=== PATIENT | male | born 1945 | race Caucasian/White ===

== ENCOUNTER 2017-10-30 10:25 | Day surgery (SDC) | payer OTHER ==
[~2017-10-30 10:25] MED LIST: HYDROmorphone 2 MG/ML VIAL IV; MORPHINE SULFATE 4 MG/ML DISP.SYRIN. IV; ONDANSETRON PF 4 MG/2 ML VIAL. IV
[2017-10-30] MEDS ORDERED: ceFAZolin 2GM PREMIX 2 GM/50 ML BAG IV (11:00)
[2017-10-30] MEDS ORDERED: LIDOCAINE 2% PF Vial for OR 5 ML VIAL. (11:23)
[2017-10-30] MEDS ORDERED: DEXAMETHASONE SOD PHOS 20 MG/5 ML VIAL. (11:23)
[2017-10-30] MEDS ORDERED: fentaNYL PF VIAL 100 MCG/2 ML VIAL (11:23)
[2017-10-30] MEDS ORDERED: PROPOFOL 20 ML IV (11:23)
[2017-10-30] MEDS ORDERED: ONDANSETRON PF 4 MG/2 ML VIAL. (11:23)
[2017-10-30] MEDS: IV RINGERS,LACTATED 1000ML 1,000 ML IV (11:23)
[2017-10-30] MEDS: BACITRACIN 50,000 UNIT in IV NORMAL SALINE 500ML BAG 500 ML IRR (12:29)
[2017-10-30] MEDS: BUPIVACAINE-EPI 0.25%-1:200000 50 ML VIAL. (12:29)
[2017-10-30] MEDS ORDERED: ePHEDrine PF IN SALINE 50 MG/5 ML DISP.SYRIN IV (12:50)
[2017-10-30] MEDS: fentaNYL PF VIAL 100 MCG/2 ML VIAL IV ×3 (13:48→14:41)
[2017-10-30] MEDS: PROCHLORPERAZINE 10 MG/2 ML VIAL. IV (13:48)
[2017-10-30] MEDS: LIDOCAINE 1% PF 2 ML VIAL. ID (14:21)
[2017-10-30] MEDS ORDERED: HYDROcodone/APAP 5/325MG 1 TAB TABLET PO (14:45)
[2017-10-30] MEDS: HYDROcodone/APAP 5/325MG 1 TAB TABLET PO (14:57)
== END 2017-10-30 15:42 | disposition home or self-care (01) ==
LOC: SURG 10:25
DX: K40.90 Unilateral inguinal hernia, without obstruction or gangrene, not specified as recurrent (principal); J44.9 Chronic obstructive pulmonary disease, unspecified; Z98.890 Other specified postprocedural states; Z79.82 Long term (current) use of aspirin; Z79.899 Other long term (current) drug therapy; Z83.3 Family history of diabetes mellitus; Z82.49 Family history of ischemic heart disease and other diseases of the circulatory system; F17.210 Nicotine dependence, cigarettes, uncomplicated
CPT/HCPCS: 49505; C1781; J0690; J0780; J1100; J2405; J2704; J3010; J3490; J7040

== ENCOUNTER → 2018-01-26 | Outpatient (CLI) | payer OTHER ==
[2018-01-26] MEDS: IOHEXOL 300 MG/ML 100ML VIAL. IV (09:55)
[2018-01-26 10:12] LABS: ISTAT CREATININE 0.6 mg/dL (0.7-1.3)
== END | disposition home or self-care (01) ==
LOC: KCIC US 08:14
DX: J43.8 Other emphysema (principal); Z86.79 Personal history of other diseases of the circulatory system; Z87.891 Personal history of nicotine dependence
CPT/HCPCS: 71260; 76770; 82565; Q9967

== ENCOUNTER 2018-11-05 08:59 | Outpatient (CLI) | payer OTHER ==
[~2018-11-05] VITALS: Ht 167.6 cm; Wt 54.4 kg
[2018-11-05] VITALS (10 sets, daily range): BP systolic 110–142; BP diastolic 57–81
[~2018-11-05 08:59] MED LIST changes: +ASCO10002 PO; +ASPI-630 PO; +ATOR10TA60 PO; +BREO ELLIPTA 11 EACH IH; +BREO ELLIPTA 21 EACH IH; +HYDR-3164 PO; -HYDROmorphone 2 MG/ML VIAL IV; -MORPHINE SULFATE 4 MG/ML DISP.SYRIN. IV; +MULT1TAB52 PO; -ONDANSETRON PF 4 MG/2 ML VIAL. IV; +PROAIR RESPICL90 MCG IH; +VENTOLIN HFA18 GM INH
[2018-11-05 09:34] LABS: HEMATOCRIT 47.9 % (39.0-53.0); HEMOGLOBIN 16.1 g/dL (13.0-17.5); RED BLOOD COUNT 5.6 x10^6/uL (4.30-5.70); RED CELL DISTRIBUTION WIDTH 15.5 % (11.5-14.5); WHITE BLOOD COUNT 8.7 x10^3/uL (4.0-11.0)
[2018-11-05 09:46] LABS: CALCIUM 9.5 mg/dL (8.5-10.1); CREATININE 0.7 mg/dL (0.7-1.3); GFR 110.2; POTASSIUM 4.5 mmol/L (3.5-5.1)
[2018-11-05] MEDS ORDERED: MIDAZOLAM HCL/PF 5 MG/5 ML VIAL. ONE (13:42)
[2018-11-05] MEDS ORDERED: fentaNYL PF VIAL 100 MCG/2 ML VIAL ONE (13:42)
[2018-11-05] MEDS ORDERED: NITROGLYCERIN 200 MCG/2 ML SYRINGE FOR CATH/VASC LAB. ONE (14:03)
[2018-11-05] MEDS ORDERED: HEPARIN for IV BOLUS 10,000 UNIT/10 ML VIAL. ONE (14:03)
[2018-11-05] MEDS ORDERED: VERAPAMIL 5 MG/2 ML VIAL. ONE (14:03)
[2018-11-05] MEDS ORDERED: VERAPAMIL 5 MG/2 ML VIAL. IART ONE (14:45)
[2018-11-05] MEDS ORDERED: LIDOCAINE 1% Multi-Dose 20 ML VIAL. INJ ONE (14:45)
[2018-11-05] MEDS ORDERED: MIDAZOLAM HCL/PF 5 MG/5 ML VIAL. IV ONE (14:45)
[2018-11-05] MEDS ORDERED: NITROGLYCERIN 200 MCG/2 ML SYRINGE FOR CATH/VASC LAB. IART ONE (14:45)
[2018-11-05] MEDS ORDERED: IODIXANOL 320 MG/ML 100 ML VIAL. IART ONE (14:45)
[2018-11-05] MEDS ORDERED: HEPARIN for IV BOLUS 10,000 UNIT/10 ML VIAL. IART ONE (14:45)
[2018-11-05] MEDS ORDERED: fentaNYL PF VIAL 100 MCG/2 ML VIAL IV ONE (14:45)
--- NOTE | 2018-11-05 16:32 | CARD ---
MR#: [id number] Date of Study: 11/05/2018 Ordering Physician: TRAN LAMA, Referring Physician: TRAN LAMA, Tech: RT Heriberto (R) JANY APPROVED REPORT Technologist: RT Heriberto (R) JANY Nurse: Emili Colunga R.N. Procedure(s) performed: MOD SEDATION 50 MIN dap 84 Fluoro time: 4.2 min contrast: 145ml LHC, Coronary angiography. HISTORY The patient is a 73 year-old male with a history of : tobacco history() , hypertension, dyslipidemia. INDICATION The indication(s) include : unstable angina , dyspnea. [facility] Clinical Frailty Scale [facility] Clinical Frailty Scale: Moderately Frail Heart Failure Heart Failure: No If Yes, Newly Diagnosed: No PROCEDURE NARRATIVE INFORMED CONSENT: After explaining the risks and benefits of the procedure and alternatives, informed consent was obtained. The patient was brought electively to the cardiac catheterization lab. A timeout was performed confi rming the patient's name, date of , procedure, and site of procedure. All necessary personnel w ere wearing the appropriate protective equipment and radiation monitor devices. (See nursing notes for medications administered). ACCESS: The right wrist was sterilely prepped and draped in the usual fashion. The right wrist was infiltrat ed with 1 mL of 2% lidocaine for subcutaneous anesthesia. A 6 [place] Terumo glide sheath was inserte d into the right radial artery without difficulty. CORONARY ANGIOGRAPHY: Right and left coronary angiography was performed using a 6Fr TIG 4.0 catheter. Left ventricular en d diastolic pressure was obtained with a pigtail catheter and pullback was performed after left ventr iculography. All catheter exchanges and advancements were performed over a guidewire. CLOSURE: At case completion the right radial sheath was removed and a Terumo radial band was applied with 13 m l of air. COMPLICATIONS: The patient tolerated the procedure well and there were no immediate complications. FINDINGS: HEMODYNAMICS: LVEDP 14 mm Hg No gradient on LV to aortic pullback. AO: 128/78 LEFT VENTRICULOGRAM: EF 55% Anterobasal: Normal. Anterolateral: Normal Apical: Normal Diaphragmatic: Normal Posterobasal: Normal CORONARY ANGIOGRAPHY: LM is a large caliber vessel with normal angiographic appearance. LAD is a large caliber vessel with a proximal eccentric 40-50% stenosis. D1 is a moderate caliber vessel with normal angiographic apeparance. LCx is a moderate caliber non-dominant vessel with mild luminal irregularities. OM1 is a moderate caliber vessel with normal angiographic appearance. RCA is a large caliber dominant vessel with a mid 40% stenosis. RPDA and RPL are moderate caliber vessels with normal angiographic appearance. Conclusion 1. Normal left sided filling pressures. 2. Moderate two vessel disease without any critical stenosis. 3. Normal LV systolic function. EF 55% Recommendations Dyspnea is out of proportion to CAD - likely related to smoking and COPD. Continue optimization of COPD and attempts at smoking cessation and risk factor modification. Signed by : Tran Lama, Electronically Approved : 11/05/2018 16:32:30
--- NOTE | 2018-11-05 16:51 | CARD ---
MR#: [id number] Date of Study: 11/05/2018 Ordering Physician: TRAN LAMA, Referring Physician: TRAN LAMA, Tech: RT Heriberto (R) JANY APPROVED REPORT Technologist: RT Heriberto (R) JANY Nurse: Emili Colunga R.N. Procedure(s) performed: MODERATE SEDATION: 50 MIN CONTRAST: 145CC DAP: 84 MIN FLUORO TIME: 4.2 MIN Abdominal aortogram with iliofemoral run-off HISTORY : The patient is a 73 year-old male with a history of . INDICATION The indication(s) include : bilateral lifestyle limiting claudication with abnormal DERIK. . PROCEDURE NARRATIVE After appropriate informed consent the patient was prepped and draped in usual sterile fashion. Acces s was obtained in the right radial artery via the modified Seldinger technique. A 6 Serbian sheath was placed without difficulty. A pigtail catheter was advanced to the distal abdominal aorta and digital subtraction angiography was performed with an abdominal aortogram in multiple views and iliofemoral runoff. Findings: Aorta: Moderate adventitial calcification with a distal aneurysm extending into the left common iliac vessels. Renal arteries: Single renal arteries are without significant stenosis. RCIA: There is an ostial 80% stenosis. There is a patent mid to distal stent that extends to the prox imal REIA which appears to be patent. REIA: Patent proximal stent without significant disease. RIIA: No significant disease. RCFA: No signficant disease. RSFA:No significant disease. RPOP: No significant disease. RPT: No significant disease proximally. RAT: No significant disease proximally. RPER: Not well visualized. LCIA: There is a moderate to large size aneuryms extending from the distal abdominal aorta. On single plane imaging, it appears approximately 9 mm. No significant stenosis noted. SIMON: There is a proximal 30% stenosis. LIIA: No significant disease. LCFA: No significant disease. LSFA: No significant disease. LPOP: No significant disease. LAT: Moderate adventitial calcification without significant intraluminal disease. LPT: Moderate adventitial calcification without significant intraluminal disease. LPER: Not well visualized. Conclusion 1. Distal abdominal aortic aneurysm extending into the left common iliac. 2. Severe 80% stenosis involving the right common iliac. 3. Robust two vessel run-off below the knee Recommendations 1. Will have a CT scan performed for better assessment of aneurysm size. 2. May need vascular surgery consultation for consideration of endovascular stent grafting of the ane urysm. 3. PVI of the RCIA deferred until treatment of aneurysm is determined. Signed by : Tran Lama, Electronically Approved : 11/05/2018 16:50:19
--- NOTE | 2018-11-05 17:07 | NUR ---
Discharge Note: TANO GARCIA Discharge instructions and discharge home medications reviewed with Patient and a copy given. All questions have been answered and understanding verbalized. The following instructions and handouts were given: radial site care and moderate sedation Discontinued lines and drains: Peripheral IV intact. Patient discharged to Home or Self Care withFriendvia Wheelchair
== END 2018-11-05 17:09 | disposition home or self-care (01) ==
LOC: CCL 08:59
PROVIDERS: ATTEND Internal Medicine Cardiovascular Disease
DX: I25.110 Atherosclerotic heart disease of native coronary artery with unstable angina pectoris (principal); I70.213 Atherosclerosis of native arteries of extremities with intermittent claudication, bilateral legs; I71.4 Abdominal aortic aneurysm, without rupture; J44.9 Chronic obstructive pulmonary disease, unspecified; F17.200 Nicotine dependence, unspecified, uncomplicated; I10 Essential (primary) hypertension; Z98.890 Other specified postprocedural states
CPT/HCPCS: 36415; 75625; 75716; 80048; 85027; 85610; 93458; 99152; 99153; C1769; C1892; J1644; J2250; J3010; J3490; Q9967; 36200; 75630

== ENCOUNTER → 2018-11-30 | Outpatient (CLI) | payer OTHER ==
[2018-11-05 16:46] VITALS: BP 110/63
[~2018-11-30] MED LIST changes: +IOHEXOL 350 MG/ML 100 ML VIAL. IV ONE
--- NOTE | 2018-11-30 16:07 | RAD ---
CTA of the abdomen and pelvis without comparison for abdominal aortic aneurysm. TECHNIQUE: Contiguous helical 3 mm axial images are obtained from the apex of diaphragm to the pelvic floor both before and after administration of IV contrast in the arterial phase. Sagittal and coronal MIPS are evaluated as are 3-D volume rendered images of the vasculature. Nonvascular findings: Emphysematous changes of the lung bases are redemonstrated. There is an irregular lobular spiculated nodular abnormality in the right lower lobe seen best on axial image #3 of series #5, which could reflect a small cluster of infectious nodules, however more sinister etiologies cannot excluded. This was not present on the CT scan of the chest dated January 26, 2018, and short-term follow-up CT scan in 3-6 months is recommended. Several small liver cysts are redemonstrated and unchanged. Gallbladder is fluid distended and grossly unremarkable. Pancreas, spleen, and left kidney are all normal. Right kidney is notable only for an exophytic simple cyst. There is no hydronephrosis involving either kidney. There is fullness of both adrenal glands without a discrete mass. This is stable. No suspicious lymphadenopathy is seen. No free or loculated fluid collections are present within the abdomen or pelvis. The urinary bladder is fluid distended and grossly unremarkable. There are soft tissue densities within the pelvis bilaterally, posterior to the enlarged coarsely calcified prostate. These likely reflect hypertrophied seminal vesicles. There is a large amount of stool distributed throughout the colon, however no focal bowel wall thickening or bowel dilatation is identified. The appendix is not identified. There are severe degenerative changes at L5-S1, with no other significant osseous abnormalities. Vascular findings: There is patchy intraluminal thrombus throughout the abdominal aorta. Originating at the FARAZ, there is an infrarenal abdominal aortic aneurysm measuring 2.9 x 3.0 cm AP and transversely, as measured on axial image #57 oh of series 5. This aneurysm extends to the aortic bifurcation. At the midportion of the aneurysm, there is a dissection flap on the right, producing a patent false lumen which perfuses a patent right common iliac artery stent. This stent is extrinsic to the thrombosed [place] right common iliac artery, but does provide in-line flow to the [place] external iliac artery. The cephalic margin of the stent does not extend through the intimal fenestration into the true lumen of the aorta. The intimal fenestration itself appears quite narrow, and may produce some flow restriction. The right internal iliac artery is patent. There is a moderate amount circumferential mural thrombus throughout the aneurysm. The patent [place] lumen of the aorta perfuses the left iliofemoral arteries, all of which are patent. There is moderate multifocal atherosclerosis comprised of soft and calcified plaque, involving the iliofemoral arteries diffusely. This appears to result in approximately 50 percent stenosis of the left common iliac artery, and perhaps 50 percent stenosis of the left common femoral artery as well, with less than 50 percent stenosis seen elsewhere. The celiac artery, SMA, bilateral renal arteries, and FARAZ are all patent, with only mild atherosclerosis involving the right renal artery and FARAZ. IMPRESSION: 1. Irregular suspicious nodular abnormality in the right lung base new since December 2017, on a background of COPD. Findings may be infectious or neoplastic. Short-term follow-up in 3-6 months is recommended. 2. Stable appearing bilateral adrenal gland enlargement with no focal nodules or masses. This is nonspecific. 3. Enlargement of the seminal vesicles, with enlarged partially calcified prostate gland. Correlate clinically. 4. Infrarenal abdominal aortic aneurysm extending from the FARAZ to the aortic bifurcation, small at 3 cm, but with complex features as described. It appears there has been subintimal recanalization of a chronically occluded right common iliac artery, with reentry at the midportion of the aneurysm. The cephalic margin of the stent stent does not extend entirely into the true lumen, thereby producing a 1.5 cm uncovered proximal false lumen which perfuses the stent. Additionally, though patent, the intimal fenestration appears quite tight and may produce some flow restriction. 5. Multifocal aortoiliac atherosclerosis with areas of roughly 50 percent stenosis involving the left common iliac artery and left common femoral artery. PQRS Compliance Statement: One or more of the following individualized dose reduction techniques were utilized for this examination: 1. Automated exposure control 2. Adjustment of the mA and/or kV according to patient size 3. Use of iterative reconstruction technique Electronically signed by: Narinder Boateng MD (11/30/2018 4:04 PM) [facility]
== END | disposition home or self-care (01) ==
LOC: CT 11:35
PROVIDERS: ATTEND Internal Medicine Cardiovascular Disease
DX: I74.09 Other arterial embolism and thrombosis of abdominal aorta (principal); I71.4 Abdominal aortic aneurysm, without rupture; I70.0 Atherosclerosis of aorta; I74.5 Embolism and thrombosis of iliac artery; J43.9 Emphysema, unspecified; R91.8 Other nonspecific abnormal finding of lung field; K76.89 Other specified diseases of liver; N28.1 Cyst of kidney, acquired; N40.0 Benign prostatic hyperplasia without lower urinary tract symptoms; F17.200 Nicotine dependence, unspecified, uncomplicated; Z79.01 Long term (current) use of anticoagulants
CPT/HCPCS: 74174; Q9967

== ENCOUNTER 2019-06-23 11:40 | Emergency (ER) | payer MEDICARE, OTHER ==
[~2019-06-23] VITALS: Ht 165.1 cm; Wt 54.4 kg
[~2019-06-23 11:40] MED LIST changes: -IOHEXOL 350 MG/ML 100 ML VIAL. IV ONE
[2019-06-23 12:04] LABS: BASO # 0.1 x10^3/uL (0.0-0.2); BASO % 1 % (0-3); EOS # 0.2 x10^3/uL (0.0-0.7); EOS % 3 % (0-3); HEMOGLOBIN 15.5 g/dL (13.0-17.5); LYMPH # 1.1 x10^3/uL (1.0-4.8); LYMPH % 17 % (24-48); MEAN CORPUSCULAR HEMOGLOBIN 29 pg (25-35); MEAN CORPUSCULAR HGB CONC 34 g/dL (31-37); MEAN CORPUSCULAR VOLUME 85 fL (79-100); MONO # 0.8 x10^3/uL (0.0-1.1); MONO % 12 % (0-9); NEUT # 4.4 x10^3/uL (1.8-7.7); NEUT % 68 % (31-73); PLATELET COUNT 262 x10^3/uL (140-400); RED BLOOD COUNT 5.44 x10^6/uL (4.30-5.70); WHITE BLOOD COUNT 6.5 x10^3/uL (4.0-11.0)
--- NOTE | 2019-06-23 12:04 | PHYS DOC ---
Adult General Chief Complaint Chief Complaint: SHORTNESS OF BREATH HPI HPI Patient is a 73 year old male who presents with shortness of breath that started last night when he is walking to the bathroom. The patient states that he's using inhaler 3-4 times. The patient also states he is having a little bit left shoulder pain for couple minutes. The patient states he has a history of COPD. He smokes 3-4 cigarettes a day. Denies any pain. Review of Systems Review of Systems Constitutional: Denies fever or chills [] Eyes: Denies change in visual acuity, redness, or eye pain [] HENT: Denies nasal congestion or sore throat [] Respiratory: Reports cough and shortness of breath [] Cardiovascular: No additional information not addressed in HPI [] GI: Denies abdominal pain, nausea, vomiting, bloody stools or diarrhea [] : Denies dysuria or hematuria [] Musculoskeletal: Denies back pain or joint pain [] Integument: Denies rash or skin lesions [] Neurologic: Denies headache, focal weakness or sensory changes [] Endocrine: Denies polyuria or polydipsia [] Complete systems were reviewed and found to be within normal limits, except as documented in this note. Current Medications Current Medications Current Medications Medications (Trade) Dose Ordered Sig/Karolyn Start Time Stop Time Status Last Admin Dose Admin Albuterol Sulfate (Ventolin Neb Soln) 10 mg 1X STAT 06/23/19 12:59 06/23/19 13:02 DC 06/23/19 13:22 10 MG Albuterol/ Ipratropium (Duoneb) 3 ml 1X ONCE 06/23/19 12:00 06/23/19 12:01 DC 06/23/19 12:35 3 ML Magnesium Sulfate/ Dextrose 100 ml @ As Directed STK-MED ONCE 06/23/19 13:03 06/23/19 13:03 DC Methylprednisolone Sodium Succinate (SOLU-Medrol 125MG VIAL) 125 mg 1X ONCE 06/23/19 12:00 06/23/19 12:01 DC 06/23/19 12:22 125 MG Sodium Chloride 1,000 ml @ 1,000 mls/hr 1X ONCE 06/23/19 12:00 06/23/19 12:59 DC 06/23/19 12:22 1,000 MLS/HR Allergies Allergies Allergies Coded Allergies Type Severity Reaction Last Updated Verified No Known Drug Allergies 10/30/17 No Physical Exam Physical Exam Constitutional: Well developed, well nourished, no acute distress, non-toxic appearance. [] HENT: Normocephalic, atraumatic, bilateral external ears normal, oropharynx moist, no oral exudates, nose normal. [] Eyes: PERRLA, EOMI, conjunctiva normal, no discharge. [] Neck: Normal range of motion, no tenderness, supple, no stridor. [] Cardiovascular:Heart rate regular rhythm, no murmur [] Lungs & Thorax: Bilateral breath sounds has scattered wheezing with diminished breath sounds. Abdomen: Bowel sounds normal, soft, no tenderness, no masses, no pulsatile masses. [] Skin: Warm, dry, no erythema, no rash. [] Neurologic: Alert and oriented X 3, normal motor function, normal sensory function, no focal deficits noted. [] Psychologic: Affect normal, judgement normal, mood normal. [] Current Patient Data Vital Signs Vital Signs Date Time Temp Pulse Resp B/P (MAP) Pulse Ox O2 Delivery O2 Flow Rate FiO2 06/23/19 13:27 Room Air 06/23/19 12:37 95 06/23/19 11:40 98.0 93 20 209/79 (122) 98.0 Lab Values Laboratory Tests Test 06/23/19 11:55 White Blood Count 6.5 x10^3/uL (4.0-11.0) Red Blood Count 5.44 x10^6/uL (4.30-5.70) Hemoglobin 15.5 g/dL (13.0-17.5) Hematocrit 46.0 % (39.0-53.0) Mean Corpuscular Volume 85 fL (79-100) Mean Corpuscular Hemoglobin 29 pg (25-35) Mean Corpuscular Hemoglobin Concent 34 g/dL (31-37) Red Cell Distribution Width 15.0 % (11.5-14.5) H Platelet Count 262 x10^3/uL (140-400) Neutrophils (%) (Auto) 68 % (31-73) Lymphocytes (%) (Auto) 17 % (24-48) L Monocytes (%) (Auto) 12 % (0-9) H Eosinophils (%) (Auto) 3 % (0-3) Basophils (%) (Auto) 1 % (0-3) Neutrophils # (Auto) 4.4 x10^3/uL (1.8-7.7) Lymphocytes # (Auto) 1.1 x10^3/uL (1.0-4.8) Monocytes # (Auto) 0.8 x10^3/uL (0.0-1.1) Eosinophils # (Auto) 0.2 x10^3/uL (0.0-0.7) Basophils # (Auto) 0.1 x10^3/uL (0.0-0.2) Sodium Level 143 mmol/L (136-145) Potassium Level 3.9 mmol/L (3.5-5.1) Chloride Level 103 mmol/L (98-107) Carbon Dioxide Level 32 mmol/L (21-32) Anion Gap 8 (6-14) Blood Urea Nitrogen 13 mg/dL (8-26) Creatinine 0.8 mg/dL (0.7-1.3) Estimated GFR (Cockcroft-Gault) 94.5 BUN/Creatinine Ratio 16 (6-20) Glucose Level 95 mg/dL (70-99) Calcium Level 9.1 mg/dL (8.5-10.1) Total Bilirubin 0.4 mg/dL (0.2-1.0) Aspartate Amino Transferase (AST) 14 U/L (15-37) L Alanine Aminotransferase (ALT) 18 U/L (16-63) Alkaline Phosphatase 62 U/L (46-116) Troponin I Quantitative < 0.017 ng/mL (0.000-0.055) Total Protein 7.3 g/dL (6.4-8.2) Albumin 4.0 g/dL (3.4-5.0) Albumin/Globulin Ratio 1.2 (1.0-1.7) Procalcitonin < 0.10 ng/mL (0.00-0.10) Influenza Type A Antigen Negative (NEGATIVE) Influenza Type B Antigen Negative (NEGATIVE) Laboratory Tests 06/23/19 11:55 Laboratory Tests 06/23/19 11:55 EKG EKG EKG interpreted by Dr. Guero Muniz with rate of 84, right axis deviation. NO STEMI. Radiology/Procedures Radiology/Procedures [][facility] [address] [place] [address] IMAGING REPORT Signed PATIENT: TANO GARCIA DEANACCOUNT: [id number] : 1945 LOCATION: ER AGE: 73 SEX: M EXAM STATUS: PRE ER ORD. PHYSICIAN: RITA ELLIOTT APRN REASON: shortness of breath PROCEDURE: CHEST PA & LATERAL EXAM: CHEST 2 VIEWS. HISTORY: Shortness of breath. COMPARISON: 01/26/2018. FINDINGS: Frontal and lateral views of the chest are obtained. Hyperinflation is consistent with chronic obstructive pulmonary disease. There are no confluent infiltrates. Blunting of the costophrenic angles is likely from hyperinflation and scarring rather than small effusions. There is no pneumothorax or clear pleural effusion. The heart is not enlarged. IMPRESSION: 1. Chronic obstructive pulmonary disease. No confluent infiltrates. Electronically signed by: Carmela Quezada MD (06/23/2019 12:25 PM) [facility] DICTATED and SIGNED BY: PRESTON QUEZADA MD DATE: 06/23/19 1719 Course & Med Decision Making Course & Med Decision Making Pertinent Labs and Imaging studies reviewed. (See chart for details) Will give breathing treatment, steroids, chest x-ray, labs, and ekg. Chest x-ray is unremarkable. Labs are unremarkable. After duoneb patient was still wheezing. I ordered Magnesium and ordered an hour long treatment. Will d/c home with medrol dose.. Patient is feeling better after 2nd treatment. Dragon Disclaimer Dragon Disclaimer This electronic medical record was generated, in whole or in part, using a voice recognition dictation system. Departure Departure Impression: Primary Impression: COPD exacerbation Disposition: HOME, SELF-CARE Condition: STABLE Referrals: LB DU MD (PCP) Patient Instructions: Chronic Obstructive Pulmonary Disease Exacerbation Additional Instructions: Thank you for visiting [facility]. We appreciate you trusting us with your care. If any additional problems come up don't hesitate to return to visit us. Please follow up with your primary care provider so they can plan additional care if needed and know about the problem that you had. If symptoms worsen come back to the Emergency Department. Any concerning symptoms that start such as chest pain, shortness of air, weakness or numbness on one side of the body, running high fevers or any other concerning symptoms return to the ER. Scripts Methylprednisolone (MEDROL) 4 Mg Tab.ds.pk 1 PKG PO UD, #1 PKG Prov: RITA ELLIOTT APRN 06/23/19 RITA ELLIOTT APRN Jun 23, 2019 12:04
[2019-06-23 12:15] LABS: CALCIUM 9.1 mg/dL (8.5-10.1); CREATININE 0.8 mg/dL (0.7-1.3); GFR 94.5; POTASSIUM 3.9 mmol/L (3.5-5.1)
[2019-06-23] MEDS: methylPREDNISolone SOD SUCC PF 125 MG/2 ML VIAL. IV ONE (12:22)
[2019-06-23] MEDS: IV NORMAL SALINE 1000ML BAG 1,000 ML IV ONE (12:22)
[2019-06-23 12:23] LABS: ALBUMIN/GLOBULIN RATIO 1.2 (1.0-1.7); TOTAL BILIRUBIN 0.4 mg/dL (0.2-1.0); TOTAL PROTEIN 7.3 g/dL (6.4-8.2)
[2019-06-23 12:25] LABS: INFLUENZA A PATIENT NEGATIVE (NEGATIVE); INFLUENZA B PATIENT NEGATIVE (NEGATIVE)
--- NOTE | 2019-06-23 12:28 | RAD ---
EXAM: CHEST 2 VIEWS. HISTORY: Shortness of breath. COMPARISON: 01/26/2018. FINDINGS: Frontal and lateral views of the chest are obtained. Hyperinflation is consistent with chronic obstructive pulmonary disease. There are no confluent infiltrates. Blunting of the costophrenic angles is likely from hyperinflation and scarring rather than small effusions. There is no pneumothorax or clear pleural effusion. The heart is not enlarged. IMPRESSION: 1. Chronic obstructive pulmonary disease. No confluent infiltrates. Electronically signed by: Carmela Quezada MD (06/23/2019 12:25 PM) [facility]
[2019-06-23] MEDS: IPRATRPIUM/ALBUTEROL 0.5/2.5MG 3 ML NEBU. NEB ONE (12:35)
[2019-06-23] MEDS ORDERED: METH4TAB2 PO (12:57)
[2019-06-23] MEDS ORDERED: MAGNESIUM SULFATE 1GM 100 ML IV ONE (13:03)
[2019-06-23] MEDS: MAGNESIUM SULFATE 1GM 100 ML IV STA (13:09)
[2019-06-23] MEDS: ALBUTEROL SULFATE 2.5 MG/3 ML NEBU. CONT NEB STA (13:22)
[2019-06-23 14:48] VITALS: BP 121/60
--- NOTE | 2019-06-23 16:21 | EKG ---
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
== END 2019-06-23 14:56 | disposition home or self-care (01) ==
LOC: ER 11:40
DX: J44.1 Chronic obstructive pulmonary disease with (acute) exacerbation (principal); M25.512 Pain in left shoulder; F17.210 Nicotine dependence, cigarettes, uncomplicated
CPT/HCPCS: 36415; 71046; 80053; 84145; 84484; 85025; 87804; 93005; 94640; 94644; 96361; 96365; 96375; 99285; J2930; J3475; J7030; J7613; J7620